=== PATIENT | female | born 1935 | race Caucasian/White ===

== ENCOUNTER 2016-07-14 12:22 | Emergency (ER) | payer OTHER, MEDICARE ==
[2016-07-14 13:01] VITALS: BP 145/83; PULSE 71; RESP 14; TEMP 97.5; O2SAT 95
--- NOTE | 2016-07-14 13:42 | UCPHY ---
[phone] parking lot. Direct impact on right knee, left wrist, and left shoulder/ upper arm. Pt also states she hit the left side of her face against the pavement. Pt has memory of events. Time Seen by Provider: 07/14/16 13:18 HPI/ROS: Chief complaint: Left wrist right knee pain status post fall HPI: 80-year-old female was in the store parking lot when she slipped on black ice falling forward. She 1st landed on her right knee and then her left wrist. She did raise some left side of her head. She had no loss of consciousness. She got up with assistance and ambulate into the store. She is complaining of right knee pain but primarily left wrist and hand pain. No headache. No nausea or vomiting. No vision or hearing changes. No neck pain. No chest pain. No abdominal pain. No hip pain or other joint pain. ROS: 10 point Review of Systems is negative except as noted in the HPI. Physical exam: Gen: Awake, Alert, No Distress HEENT: Nose: Small abrasion left side of her nose. No bony deformities. No step- offs. No facial tenderness. No contusions. Nose: no rhinorrhea Eyes: PERRLA, EOMI Mouth: Moist mucosa Neck: Supple, no JVD Chest: nontender, lungs clear to auscultation Heart: S1, S2 normal, no murmur Abd: Soft, non-tender, no guarding Back: no CVA tenderness, no midline tenderness Ext: Left wrist: She has tenderness at the base of left thumb and minimal tenderness anatomic snuffbox. Minimal a left distal radial tenderness. Sensations intact in the radial, median, and ulnar nerve distribution. Cap refills less than 2 seconds. She is able to flex and extend all of her digits. There is no abrasions or deformities. Right knee: She has an abrasion over her patella. There is no patellar tenderness. She has full flexion extension past 90 . No medial lateral tenderness. No instability. Is ambulating without assistance. Skin: no rash Neuro: CN II-XII intact, Sensation grossly intact, Strength 5/5 in bilateral upper and lower extremities - Personal History Current Tetanus/Diphtheria Vaccine: Yes Tetanus Vaccine Date: 2015 - Medical/Surgical History Hx Asthma: Yes Hx Chronic Respiratory Disease: No Hx Diabetes: No Hx Cardiac Disease: No Hx Renal Disease: No Hx Cirrhosis: No Hx Alcoholism: No Hx HIV/AIDS: No Hx Splenectomy or Spleen Trauma: No Other PMH: Hysterectomy, Gall Bladder, Bladder repair, Sinus surgery, achiles tendon repair x2. - Family History Significant Family History: No pertinent family hx - Social History Smoking Status: Former smoker Constitutional: Initial Vital Signs Temperature (C) 36.4 C 07/14/16 12:52 Heart Rate 71 07/14/16 12:52 Respiratory Rate 14 07/14/16 12:52 Blood Pressure 145/83 H 07/14/16 12:52 O2 Sat (%) 95 07/14/16 12:52 O2 Delivery Mode Room Air Allergies/Adverse Reactions: Penicillins Allergy (Unknown, Verified 11/04/10 14:19) Sulfa (Sulfonamide Antibiotics) Allergy (Unknown, Verified 11/04/10 14:19) cefaclor [From Ceclor] Allergy (Verified 11/06/14 13:01) cefadroxil hydrate [From Duricef] Allergy (Verified 11/06/14 13:00) cefuroxime axetil [From Ceftin] Allergy (Verified 11/06/14 13:01) clobetasol Allergy (Verified 11/06/14 12:59) erythromycin base Allergy (Verified 11/06/14 12:59) esomeprazole magnesium [From Nexium] Allergy (Verified 11/06/14 13:07) estradiol [From Vivelle] Allergy (Verified 11/06/14 13:00) hydrocodone bitartrate [From Vicodin] Allergy (Verified 11/06/14 13:09) lactose Allergy (Verified 11/06/14 13:17) meperidine HCl [From Demerol] Allergy (Verified 11/06/14 12:59) minocycline HCl [From Minocin] Allergy (Verified 11/06/14 13:00) naproxen [From Naprosyn] Allergy (Verified 11/06/14 13:07) nefazodone HCl [From Serzone] Allergy (Verified 11/06/14 13:08) oxycodone Allergy (Verified 11/06/14 13:08) risedronate sodium [From Actonel] Allergy (Verified 11/06/14 13:08) sertraline Allergy (Verified 11/06/14 13:08) tapentadol Allergy (Verified 11/06/14 13:02) terbinafine HCl [From Lamisil] Allergy (Verified 11/06/14 13:07) tramadol Allergy (Verified 11/06/14 13:09) "I DON'T KNOW, ON YOUR COMPUTER" Allergy (Uncoded 11/04/10 14:19) Home Medications: Medication Instructions Recorded Acyclovir [Zovirax] 200 mg PO DAILY 11/06/14 Budesonide/Formoterol 80/4.5 1 puffs IH BID 11/06/14 [Symbicort 80-4.5 Mcg Inhaler] Diclofenac Sodium [Voltaren Gel] 1 sheila TP DAILY PRN 11/06/14 Estradiol [Estrace Vaginal] 1 gm VAG .3XWEEKLY 11/06/14 Estradiol [Estradiol 1 MG (RX)] 1 mg PO HS 11/06/14 Gabapentin [Neurontin] 600 mg PO HS 11/06/14 Levalbuterol Inhaler [Xopenex Hfa 1 puffs IH TID PRN 11/06/14 Inhaler (RX)] Losartan Potassium [Cozaar] 50 mg PO DAILY 11/06/14 Pantoprazole Sodium [Protonix] 40 mg PO BID PRN 11/06/14 ZOLPIDEM TARTRATE [Ambien CR 12.5 12.5 mg PO HS 11/06/14 mg] Zolpidem Tartrate [Ambien] 5 mg PO HS 11/06/14 Autalogous Serum 20% Eye Drops 1 drop EACHEYE QID 11/08/14 Hydrocodone/Acetaminophen 1 - 2 each PO Q4-6PRN PRN #10 07/14/16 [Hydrocodon-Acetaminophen 5-325] tablet Medical Decision Making - Diagnostics Imaging: Right knee x-ray her no obvious bony abnormality Left wrist x-ray, no obvious bony abnormality ED Course/Re-evaluation: Patient placed in a volar splint for rest wrist for comfort. She will be discharged with prescription for hydrocodone. She will follow up with primary care physician in 2-3 days for re-evaluation. She will return emergency department immediately for increasing headache, nausea vomiting, numbness tingling, or any other concerns. Departure - Departure Disposition: Home, Routine, Self-Care Clinical Impression: Knee contusion, Abrasion, Wrist sprain Condition: Good Instructions: Wrist Sprain (ED), Splint Care (ED), Contusion in Adults (ED), Abrasion (ED) Additional Instructions: You may take hydrocodone for aches and pains. Follow up with her primary care physician in 2-3 days for re-evaluation. Go to the nearest emergency department for increasing headache, nausea, vomiting , numbness, tingling, or any other concerns. Referrals: Cony [place] MD [Primary Care Provider] - As per Instructions Prescriptions: Hydrocodone/Acetaminophen [Hydrocodon-Acetaminophen 5-325] 1 - 2 each PO Q4- 6PRN PRN #10 tablet PRN Reason: Pain, Severe - PQRS PQRS Measurement: 134: Depression screening and followup, PRIME MD-PHQ2 (12 years and older) Over the last 2 weeks, how often have you been bothered by any of the following problems? 1. Feeling down, depressed, or hopeless? 2. Little interest or pleasure in doing things? [Patient answered no to both 1 and 2] 130: Documentation of medications. [Reviewed all patient medications, doses, route and frequency.] 226: Do you smoke? [No.] 47: 65 and older: Advanced care planning. Patient designates surrogate decision maker as [spouse] [ ]. 51: 18 years old and older with diagnosis of COPD, spirometry performance. [Patient has no history of COPD] 52: 18 years old and older with COPD and symptoms of COPD or FEV1<60% predicted prescribed a B Agonist. [Spirometry not performed; equipment not available.]
--- NOTE | 2016-07-14 14:34 | DX ---
Left wrist 4 views History: Fall on outstretched hand, pain. Comparison: None available. Findings: No fracture is identified. Alignment is normal. Osteopenia is present. 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 Impression: No acute osseous findings.
--- NOTE | 2016-07-14 14:36 | DX ---
Knee 4 or More Views Right History: Pain after trauma. Comparison exam: None available. Findings: Normal alignment. Joint spaces are maintained. No fracture or joint effusion. Impression: Negative right knee radiographs.
== END 2016-07-14 14:43 | disposition home or self-care (01) ==
LOC: CED 12:22
DX: S80.211A Abrasion, right knee, initial encounter (principal); S63.502A Unspecified sprain of left wrist, initial encounter; Z87.891 Personal history of nicotine dependence; W00.0XXA Fall on same level due to ice and snow, initial encounter
CPT/HCPCS: 73110; 73564; G0463

== ENCOUNTER → 2016-07-16 | Outpatient (CLI) | payer OTHER, MEDICARE ==
--- NOTE | 2016-07-16 19:54 | DX ---
Left Wrist 4 Views including a Navicular View. Clinical Indications: Persistent pain following a fall 2 days ago in a 80-year-old female; comparison left wrist study July 14, 2016.. Findings: A fracture is not identified. The bone alignment is normal. Again noted is osseous deminera lization and degenerative changes. Impression: Negative for fracture.
== END ==
LOC: FIMAGING 18:55
PROVIDERS: ATTEND Family Medicine
DX: M25.532 Pain in left wrist (principal)

== ENCOUNTER → 2016-11-03 | Outpatient (CLI) | payer OTHER, MEDICARE | LOC: FIMAGING 14:38 | PROVIDERS: ATTEND Family Medicine | DX: Z12.31 Encounter for screening mammogram for malignant neoplasm of breast (principal); Z80.3 Family history of malignant neoplasm of breast | CPT/HCPCS: G0202 ==

== ENCOUNTER → 2017-11-04 | Outpatient (CLI) | payer OTHER, MEDICARE | LOC: FIMAGING 12:55 | PROVIDERS: ATTEND Family Medicine | DX: Z12.31 Encounter for screening mammogram for malignant neoplasm of breast (principal) ==

== ENCOUNTER → 2017-11-05 | Outpatient (CLI) | payer OTHER, MEDICARE | LOC: FCPNEURO 21:00 | PROVIDERS: ATTEND Student in an Organized Health Care Education/Training Program | DX: G47.33 Obstructive sleep apnea (adult) (pediatric) (principal); R09.02 Hypoxemia ==

== ENCOUNTER → 2018-07-14 | Outpatient (CLI) | payer OTHER, MEDICARE | LOC: FIMAGING 12:52 | PROVIDERS: ATTEND Internal Medicine Rheumatology | DX: M81.0 Age-related osteoporosis without current pathological fracture (principal); Z78.0 Asymptomatic menopausal state ==

== ENCOUNTER 2018-09-13 08:05 | Day surgery (SDC) | payer OTHER, MEDICARE ==
[2018-09-13] MEDS ORDERED: LR 1,000 ML IV ONE (08:14)
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
[2018-09-13] MEDS ORDERED: NALOXONE HCL 0.4 MG/ML INJ IVP PRN (09:41)
[2018-09-13] MEDS ORDERED: LABETALOL HCL 5 MG/ML 20 ML MDV IVP PRN (09:41)
[2018-09-13] MEDS ORDERED: DEXAMETHASONE 4 MG/ML VIAL IVP PRN (09:41)
[2018-09-13] MEDS ORDERED: ONDANSETRON 4 MG/2 ML VIAL IVP PRN (09:41)
--- NOTE | 2018-09-13 09:43 | POSTANESTH ---
Post Anesthetic Evaluation Cardiovascular Status: Similar to Pre-Op Cond Respiratory Status: Similar to Pre-op Cond. Level of Consciousness/Mental Status: Can Participate in Eval Pain Control: Adequate, Prn Tx Ordered Nausea/Vomiting Control: Adequate, Prn Tx Ordered Complications Possibly Related to Anesthesia: None Noted
[2018-09-13] MEDS ORDERED: PROPOFOL/EMULSION 500 MG/50 ML BOTTLE IV ONE (09:44)
[2018-09-13] MEDS ORDERED: LIDOCAINE 2% 100 MG/5 ML SYR ONE (09:44)
--- NOTE | 2018-09-13 09:51 | PDGENHP ---
History & Physical Chief Complaint: PHx of colon polyps History of Present Illness: PHX of colon polyps with need for F/U colonocopy. Pertinent Past, Social, Family History: Asthma, difficult to sedate with last colonoscopy. Relevant Physical Exam: AVSS. Lungs clear to C&A. COR: RRR, NS1, S2 w/o M. ABD: +BS, NT. NEURO: Alert, Ox3 Cardiorespiratory Assessment: ASA II
[2018-09-13] MEDS ORDERED: PROPOFOL 200 MG/20 ML VIAL ONE (10:15)
--- NOTE | 2018-09-13 10:37 | GIREPORT ---
[facility] Surgical Services - Endoscopy Department Patient Name: Marian Farfan Procedure Date: 09/13/2018 9:29 AM Patient Type: Outpatient Attending MD/ ER Physician: Kareem Palma MD Procedure: Colonoscopy Indications: Last colonoscopy: May 2013, Follow-up for history of adenomatous p olyps in the colon Providers: Kareem Palma MD Medicines: Propofol per Anesthesia Complications: No immediate complications. Description of Procedure: After obtaining informed consent, the scope was passed under direct vis ion. Throughout the procedure, the patient's blood pressure, pulse, and oxyg en saturations were monitored continuously. The Colonoscope with irrigatio n channel was introduced through the anus and advanced to the terminal il eum. The colonoscopy was performed without difficulty. The patient tolerated the procedure well. The quality of the bowel preparation was excellent. Findings: The terminal ileum appeared normal. The cecum, appendiceal orifice and ileocecal valve appeared normal. A 5 mm polyp was found in the mid ascending colon. The polyp was sessil e. The polyp was removed with a cold biopsy forceps. Resection and retriev al were complete. Four sessile polyps were found in the transverse colon. The polyps were 4 to 5 mm in size. These polyps were removed with a cold biopsy forceps. Resection and retrieval were complete. Two sessile polyps were found in the descending colon. The polyps were 4 to 5 mm in size. These polyps were removed with a cold biopsy forceps. Resection and retrieval were complete. Four sessile polyps were found in the sigmoid colon. The polyps were 4 to 5 mm in size. These polyps were removed with a cold biopsy forceps. Resec tion and retrieval were complete. Four sessile polyps were found in the rectum. The polyps were 3 to 4 mm in size. These polyps were removed with a cold biopsy forceps. Resection a nd retrieval were complete. No additional abnormalities were found on retroflexion. The perianal and digital rectal examinations were normal. Estimated Blood Loss: Estimated blood loss: none. Post Op Diagnosis: - The examined portion of the ileum was normal. - The cecum, appendiceal orifice and ileocecal valve are normal. - One 5 mm polyp in the mid ascending colon, removed with a cold biopsy forceps. Resected and retrieved. - Four 4 to 5 mm polyps in the transverse colon, removed with a cold bi opsy forceps. Resected and retrieved. - Two 4 to 5 mm polyps in the descending colon, removed with a cold bio psy forceps. Resected and retrieved. - Four 4 to 5 mm polyps in the sigmoid colon, removed with a cold biops y forceps. Resected and retrieved. - Four 3 to 4 mm polyps in the rectum, removed with a cold biopsy force ps. Resected and retrieved. Recommendation: - Discharge patient to home (with escort). - Patient has a contact number available for emergencies. The signs and symptoms of potential delayed complications were discussed with the pat ient. Return to normal activities tomorrow. Written discharge instructions we re provided to the patient. - Advance diet as tolerated today. - Await pathology results. - Repeat colonoscopy with PROPOFOL anesthesia in 3 years for surveillan ce due to multiple polyps removed today if concurrent health issues permit . - The findings and recommendations were discussed with the patient. Attending Participation: I personally performed the entire procedure. Kareem Palma MD Kareem Palma MD 09/13/2018 10:36:37 AM This report has been signed electronicallyKareem Palma MD Number of Addenda: 0 Note Initiated On: 09/13/2018 9:29 AM Total Procedure Duration Time 0 hours 30 minutes 25 seconds [email or web address]
[2018-09-13] MEDS ORDERED: ONDANSETRON 4 MG/2 ML VIAL ONE (11:14)
[2018-09-13 12:15] VITALS: BP 155/86
== END 2018-09-13 12:28 | disposition home or self-care (01) ==
LOC: FSGY 08:05
PROVIDERS: ATTEND Internal Medicine Gastroenterology
PROC: 0DBP8ZX Excision of Rectum, Via Natural or Artificial Opening Endoscopic, Diagnostic (ICD-10-PCS; principal; 2018-09-13 09:45)
PROC: 0DBL8ZX Excision of Transverse Colon, Via Natural or Artificial Opening Endoscopic, Diagnostic (ICD-10-PCS; principal; 2018-09-13 09:45)
PROC: 0DBN8ZX Excision of Sigmoid Colon, Via Natural or Artificial Opening Endoscopic, Diagnostic (ICD-10-PCS; principal; 2018-09-13 09:45)
PROC: 0DBK8ZX Excision of Ascending Colon, Via Natural or Artificial Opening Endoscopic, Diagnostic (ICD-10-PCS; principal; 2018-09-13 09:45)
PROC: 0DBM8ZX Excision of Descending Colon, Via Natural or Artificial Opening Endoscopic, Diagnostic (ICD-10-PCS; principal; 2018-09-13 09:45)
DX: D12.3 Benign neoplasm of transverse colon (principal); D12.5 Benign neoplasm of sigmoid colon; D12.8 Benign neoplasm of rectum; D12.4 Benign neoplasm of descending colon; D12.2 Benign neoplasm of ascending colon
CPT/HCPCS: J2001; J2405; J2704

== ENCOUNTER → 2018-11-09 | Outpatient (CLI) | payer OTHER, MEDICARE | LOC: FIMAGING 15:11 | PROVIDERS: ATTEND Family Medicine | DX: Z12.31 Encounter for screening mammogram for malignant neoplasm of breast (principal); Z80.3 Family history of malignant neoplasm of breast ==